=== PATIENT | male | born 1985 | race Two or more races ===

== ENCOUNTER 2019-08-29 10:36 | Emergency (ER) | payer OTHER ==
[~2019-08-29] VITALS: Ht 172.7 cm; Wt 94.8 kg
[2019-08-29 10:43] VITALS: BP 166/101
[2019-08-29] MEDS ORDERED: IBUPROFEN 600 MG TABLET PO ONE ×2 (12:00→12:01)
== END 2019-08-29 12:17 | disposition home or self-care (01) ==
LOC: ER 10:36
DX: J10.1 Influenza due to other identified influenza virus with other respiratory manifestations (principal)